=== PATIENT | male | born 1965 | race African-American/Black ===

== ENCOUNTER 2021-02-15 13:53 | Emergency (ER) | payer MEDICARE, MEDICAID ==
[~2021-02-15] VITALS: Ht 175.3 cm; Wt 72.7 kg
[2021-02-15 13:54] VITALS: BP 140/89
[2021-02-15] MEDS ORDERED: MYRB50TA PO (14:34)
[2021-02-15] MEDS ORDERED: MIRT1TAB16 PO (14:34)
[2021-02-15] MEDS ORDERED: D-20TAB PO (14:34)
[2021-02-15] MEDS ORDERED: ASPI81CH33 PO (14:34)
[2021-02-15] MEDS ORDERED: MM S100C PO (14:34)
[2021-02-15] MEDS ORDERED: GENV1TAB PO (14:34)
[2021-02-15] MEDS ORDERED: GABA600T4 PO (14:34)
[2021-02-15] MEDS ORDERED: VITA100T28 PO (14:34)
[2021-02-15] MEDS ORDERED: QUET25TA3 PO (14:34)
[2021-02-15] MEDS ORDERED: MELO15TA28 PO (14:34)
[2021-02-15] MEDS ORDERED: OXYB10TA23 PO (14:34)
[2021-02-15] MEDS ORDERED: VENL37.52 PO (14:34)
--- NOTE | 2021-02-15 15:16 | REP ---
INDICATION: pain, swelling, unable to bear weight COMPARISON: None. TECHNIQUE: Four views left ankle. FINDINGS: There is no evidence of acute fracture, dislocation, or intrinsic bone disease.The ankle mortise is anatomic. IMPRESSION: No fracture or dislocation. <Electronically signed by Jaime Devlin > 02/15/21 [id number]
--- NOTE | 2021-02-15 15:21 | REP ---
INDICATION: pain, swelling, unable to bear weight COMPARISON: None. TECHNIQUE: Four views left foot. FINDINGS: There is no evidence of acute fracture, dislocation, or intrinsic bone disease. IMPRESSION: No fracture or dislocation. <Electronically signed by Jaime Devlin > 02/15/21 [id number]
[2021-02-15] MEDS ORDERED: INDO-16 PO (16:09)
[2021-02-15] MEDS ORDERED: KETOROLAC 30 MG/ML 1ML VIAL IM ONE (16:10)
== END 2021-02-15 17:52 | disposition home or self-care (01) ==
LOC: M ED 13:53
DX: M79.672 Pain in left foot (principal); I10 Essential (primary) hypertension; Z79.899 Other long term (current) drug therapy; Z79.82 Long term (current) use of aspirin
CPT/HCPCS: 73610; 73630; 96372; 99282; J1885